=== PATIENT | male | born 1985 | race African-American/Black ===

== ENCOUNTER 2020-09-09 15:41 | Emergency (ER) | payer OTHER ==
[~2020-09-09] VITALS: Ht 177.8 cm; Wt 106.6 kg
[2020-09-09] MEDS ORDERED: NORCO 10-325 T1 EACH PO (17:26)
[2020-09-09 19:00] VITALS: BP 143/77
== END 2020-09-09 19:01 | disposition home or self-care (01) ==
LOC: ER 15:41
DX: S97.82XA Crushing injury of left foot, initial encounter (principal); W23.1XXA Caught, crushed, jammed, or pinched between stationary objects, initial encounter; Y93.89 Activity, other specified; Y92.89 Other specified places as the place of occurrence of the external cause; Y99.8 Other external cause status